=== PATIENT | male | born 1965 | race Caucasian/White ===

== ENCOUNTER → 2025-02-13 | Outpatient (CLI) | payer BC ==
--- NOTE | 2025-02-13 16:39 | CT ---
EXAMINATION TYPE: CT urogram wo/w con CT DLP: 5409.1 mGycm, Automated exposure control for dose reduction was used. DATE OF EXAM: 02/13/2025 3:34 PM COMPARISON: None CLINICAL INDICATION:Male, 59 years old with history of R31.1 BENIGN ESSENTIAL MICROSCOPIC HEMATURIA; PHH, hematuria TECHNIQUE: Urogram of the abdomen and pelvis was performed before and after the administration of 100 cc of IV c ontrast Isovue 300 contrast. Delayed imaging was performed. Coronal and sagittal reformats were perfo rmed. One or more CT dose reduction strategies were utilized during this examination. 2D and 3D recon structions are performed to assist visualization of the urinary tract on a separate workstation. FINDINGS: GENITOURINARY: RIGHT KIDNEY AND URETER: No calculi. No hydronephrosis or hydroureter. No suspicious enhancing lesion s. Right mid kidney to hypodense cysts with largest measured 1.6 mm. No urothelial lesions: no filli ng defect, dilation, stricture or wall thickening. LEFT KIDNEY AND URETER: There are 3 nonobstructing left renal calculi. The superior pole demonstrate a 4 mm nonobstructing calculus. There are 2 nonobstructing calculi within the inferior pole measuring 6 and 5 mm. No hydronephrosis or hydroureter. Left superior pole cortical simple appearing 1.[address] No suspicious enhancing lesions. No urothelial lesions: no filling defect, dilation, stricture or wall thickening. URINARY BLADDER: Mildly distended. Normal, no calculi, mass or other lesions. REPRODUCTIVE: Unremarkable. ABDOMEN LIVER: Left hepatic dome 1.9 cm cyst. Enlarged liver measuring 22.3 cm in CC dimension. GALLBLADDER AND BILE DUCTS: Unremarkable PANCREAS: Unremarkable. SPLEEN: Unremarkable. ADRENAL GLANDS: Unremarkable. STOMACH AND BOWEL: Distal colonic diverticulosis without evidence for acute diverticulitis.. No evide nce of bowel obstruction. PERITONEUM: No evidence of pneumoperitoneum, free fluid, or adenopathy. VASCULATURE: Atherosclerotic calcifications are present throughout the abdominal aorta and its branch es. No abdominal aortic aneurysm. Left-sided pelvic phleboliths. MUSCULOSKELETAL: No acute osseous abnormalities. SOFT TISSUE/ABDOMINAL WALL: Unremarkable. LOWER CHEST: Centrilobular emphysematous changes.. IMPRESSION: 1. No evidence of suspicious enhancing renal/urothelial neoplasm. 2. Couple of bilateral small renal cysts. No follow-up recommended. 3. Approximately 3 nonobstructive left renal calculi. 4. Colonic diverticulosis without evidence for acute diverticulitis. 5. Mild hepatomegaly. [facility], , 02/13/2025 4:37 PM
== END | disposition home or self-care (01) ==
LOC: RADCTMAIN 14:25
PROVIDERS: ATTEND Urology
DX: N28.1 Cyst of kidney, acquired (principal); N20.0 Calculus of kidney; K57.30 Diverticulosis of large intestine without perforation or abscess without bleeding; R31.1 Benign essential microscopic hematuria; R16.0 Hepatomegaly, not elsewhere classified
CPT/HCPCS: 74178; 74400; Q9967